=== PATIENT | male | born 1990 | race Caucasian/White ===

== ENCOUNTER 2021-04-25 08:24 | Emergency (ER) | payer BC, MEDICAID, SELFPAY ==
[2021-04-25 08:30] VITALS: BP 151/95; PULSE 68; RESP 15; TEMP 36.7; O2SAT 98; BMI 29.9
--- NOTE | 2021-04-25 08:45 | ED_ITS ---
Documented by User: NII Damon 04/25/21 11:53 HPI - Abdominal Pain General: Chief Complaint: Abdominal Pain Stated Complaint: Abdominal & Back Pain, vomiting Time Seen by Provider: 04/25/21 08:38 History of Present Illness: HPI narrative: Patient is a 30-year-old male comes to the ED with left flank pain and nausea. Symptoms started last night. He rates pain currently an 8 out of 10 in the pain is in the left flank and rad iates down the groin. He has never had this pain before. He is currently nauseous and had multiple episodes of emesis this morning. He has never had pain like this before and has no history of past kidney stones. Associated Symptoms: Reports nausea and vomiting; Denies chills, constipation, diarrhea, dysuria, fever(s), hematochezia and hematuria Review of Systems Const: Denies: fever(s), chills or fatigue Eyes: Denies: change in vision or eye discomfort ENMT: Denies: throat pain, odynophagia, nasal discharge or nasal congestion Card: Denies: chest pain, palpitations, edema, swelling of feet/ankles, dyspnea on exertion or orthopnea Resp: Denies: dyspnea, productive cough or non-productive cough GI: Reports: nausea and vomiting; Denies: abdominal pain, diarrhea, constipation or hematochezia : Reports: flank pain (left flank); Denies: difficulty urinating, dysuria or hematuria Musc: Denies: neck pain, back pain or extremity swelling Skin/Breast: Denies: rash or new lesions Neuro: Denies: headache(s), numbness in extremities or weakness in extremities Physical Exam Const: COMMON NORMALS: patient oriented x3 and alert GENERAL APPEARANCE: cooperative; not comfortable (Patient appears uncomfortable and constantly moving around room and bed) HENMT: COMMON NORMALS: normocephalic HEAD & SCALP: normocephalic MOUTH: Normal oral and palatal mucosa present THROAT: posterior oropharynx normal and uvula midline Eye: COMMON NORMALS: Equal, round and reactive pupils present PUPIL: Yes Equal, round and reactive pupils present Neck/C-Spine: COMMON NORMALS: supple GENERAL: Yes normal visual inspection Resp: COMMON NORMALS: normal respiratory effort, No retractions, No use of accessory muscles and clear to auscultation bilaterally AUSCULTATION: clear to auscultation bilaterally Cardio: COMMON NORMALS: regular rate, regular rhythm, S1 normal heart sound present, S2 normal heart sound present, No gallops present (Cardio), No clicks present (Cardio), No murmurs present (Cardio) and Peripheral pulses 2+ throughout RATE: regular rate RHYTHM: regular rhythm HEART SOUNDS: S1 normal heart sound present and S2 normal heart sound present PERIPHERAL PULSES: Peripheral pulses 2+ throughout GI: COMMON NORMALS: Normal to inspection, nondistended, normoactive bowel so unds present, Soft to palpation, non-tender and no masses PALPATION: Yes Soft to palpation : BLADDER/KIDNEY EXAM: Yes CVA tenderness Back/Pelvis: GENERAL BACK: Yes CVA tenderness CVA tenderness: left Extremity: COMMON NORMALS: normal to inspection Neuro: COMMON NORMALS: patient oriented x3 SENSORIUM/ORIENTATION: Yes alert GAIT: Yes Normal gait present Skin: GENERAL SKIN EXAM: dry skin Course Vital Signs: Vital signs: Vital Signs Temperature 98.0 F 04/25/21 08:30 Pulse Rate 60 04/25/21 09:47 Respiratory Rate 14 04/25/21 12:11 Blood Pressure 139/92 04/25/21 09:47 Pulse Oximetry 98 04/25/21 09:47 MDM - Abdominal Pain MDM Narrative: Medical decision making narrative: Patient is a 30-year-old male comes to the ED with left flank pain. Vitals stable. Patient's urine showed red blood cells and calcium oxalate crystals. White blood cell count 17.7 with the rest of the labs are unremarkable. left CVA tenderness, but the rest of exam was benign. CT of abdomen pelvis showed 2 mm obstructive kidney stone in the left UVJ. Patient was given IV fluids, morphine, Toradol and Zofran and symptoms improved. He was stable for discharge home and pain was controlled. He was sent home with Reglan, tamsulosin, naproxen and hydrocodone. Patient instructed to strain urine to catch stone. I placed order with case management for patient be referred to Dr. Santiago's office. Return ED precautions given. Patient stood agree with plan. Lab Data: Attestation: I reviewed the patient's lab results. Labs: Lab Results 04/25/21 04/25/21 04/25/21 09:06 09:06 11:15 WBC 17.7 10^3/uL H 10 ^3/uL (4.0-10.0) RBC 5.05 10^6/uL 10^6 /uL (4.1-5.3) Hgb 16.7 g/dL H g/dL (11.7-16.6) Hct 46.9 % % (42.0-52.0) MCV 92.9 fl fl (80-94) MCH 33.1 pg pg (28.0-34.0) MCHC 35.6 g/dL g/dL (30.0-36.0) RDW 12.3 % % (12.1-15.1) Plt Count 251 10^3/cmm 10^3 /cmm (130-400) MPV 11.2 fL H fL (7.4-10.4) Neut % (Auto) 77.4 % % Lymph % (Auto) 13.9 % % Garvin % (Auto) 6.7 % % Eos % (Auto) 1.0 % % Baso % (Auto) 0.4 % % Neut # (Auto) 13.69 10^3/uL H 1 0^3/uL (1.8-7.7) Lymph # (Auto) 2.5 10^3/uL 10^3/ uL (0.8-4.8) Garvin # (Auto) 1.2 10^3/uL H 10^ 3/uL (0.2-0.9) Eos # (Auto) 0.2 10^3/uL 10^3/ uL (0.0-0.8) Baso # (Auto) 0.1 10^3/uL 10^3/ uL (0.0-0.1) Nucleated RBC % (a uto) 0 % % Nucleated RBCs # 0.0 /100WBC /100W BC Sodium 139 mmol/L mmol/L (136-145) Potassium 3.7 mmol/L mmol/L (3.5-5.1) Chloride 103 mmol/L mmol/L (98-107) Carbon Dioxide 24 mmol/L mmol/L (22-29) Anion Gap 15.7 (5-19) BUN 11 mg/dL mg/dL (6-20) Creatinine 1.1 mg/dL mg/dL (0.7-1.2) GFR Calculation 79.1 mL/min L mL/ min (90-130) Glucose 116 mg/dL H mg/dL (65-115) Calculated Osmolal ity 288 mOsm/kg mOsm/ kg (285-295) Calcium 9.3 mg/dL mg/dL (8.5-10.5) Total Bilirubin 0.4 mg/dL mg/dL (0.15-1.2) AST 17 U/L U/L (0-40) ALT 17 U/L U/L (0-41) Alkaline Phosphata se 77 IU/L IU/L (40-130) Total Protein 7.2 g/dL g/dL (6.6-8.7) Albumin 4.7 g/dL g/dL (3.5-5.2) Globulin 2.5 g/dL g/dL (1.3-4.6) Lipase 28 U/L U/L (13-60) Urine Color Di (Yellow) Urine Appearance Hazy A (CLEAR) Urine pH 5 (5-7) Ur Specific Gravit y 1.030 (1.005-1.030) Urine Protein 1+ H (Negative) Urine Glucose (UA) Norm (Normal) Urine Ketones 1+ H (Negative) Urine Blood 3+ H (Negative) Urine Nitrate Negative (Negative) Urine Bilirubin 1+ H (Negative) Urine Urobilinogen 1 mg/dL H mg/dL (Negative) Ur Leukocyte Nissa ase Negative (Negative) Urine RBC 40-50 /hpf H /hpf (0-2) Urine WBC None /hpf /hpf (0-5) Ur Squamous Epith Cells 0-4 /hpf H /hpf (0-5) Calcium Oxalate Cr ystal 15-25 /hpf H /hpf Amorphous Sediment Not Reportable Urine Bacteria 1+ /hpf H /hpf (NONE) Urine Mucus 1+ /hpf /hpf Imaging Data ^: CT Abd/Pel: Attestation: I personally reviewed and interpreted this imaging study as follows: Radiologist's impression: [address] [place] [address] CT Scan Report Signed Patient: Javier Bazzi Unit #: [id number] : 1990 Age/Sex: 30 / M ADM Date: 04/25/21 Loc: ER Room/Bed: Attending Dr: Ordering Provider/Ordering MD: Ehsan Duckworth Date of Service: 04/25/21 Procedure(s): CT kidney stone [address]62 Accession Number(s): [id number] Report Number: [id number] WS: [id number] CT ABDOMEN PELVIS TECHNIQUE: Noncontrast CT of the abdomen and pelvis with coronal and sagittal reformatted images. CLINICAL INFORMATION: left flank pain that radiatees into groin COMPARISON: None. DLP: 1507.[address] scans at [facility] use at least one of these dose optimization techniques: automated exposure control; mA and/or kV adjustment per patient size (includes targeted exams where dose is matched to clinical indication); or iterative reconstruction. FINDINGS: Mild left pelvocaliectasis with slight inflammatory stranding about the left proximal ureter. Tiny calculus in the left UVJ measuring 2 mm. Mild left ureterectasis. No hydronephrosis in right kidney. Adrenal glands are normal. Noncontrast liver is normal. Normal noncontrast spleen. Small esophageal hiatal hernia. Noncontrast pancreas appears normal. Normal caliber abdominal aorta. Tiny fat- containing umbilical hernia. No evidence of high-grade small or obstruction. No abdominal or pelvic lymphadenopathy. Mild disc bulging L4-L5 and L5-S1. Normal appendix in the right lower quadrant. IMPRESSION: 1. Tiny 2 mm calculus at the left UVJ with mild obstructive uropathy. Mild left pelvocaliectasis and ureterectasis with slight induration. 2. Normal right kidney. 3. Tiny fat-containing umbilical hernia. 4. No other significant findings. Dictated By: Fredo Sheth MD Signed By: Fredo Sheth MD Signed Date/Time: 04/25/2158 DD/ Discharge Plan Discharge Patient Disposition: Home Clinical Impression: Kidney stone on left side Condition: Stable Prescriptions: New Reglan 10 mg tablet 10 mg PO Q6H PRN (Reason: nausea and vomiting) Qty: 12 RF: 0 tamsulosin 0.4 mg capsule 0.4 mg PO DAILY Qty: 15 RF: 0 Naprosyn 500 mg tablet 500 mg PO BID PRN (Reason: pain) Qty: 20 RF: 0 No Action Tylenol Ex Str Rapid Release 500 mg Tablet 1,000 mg PO Q4H PRN (Reason: Pain) RF: 0 naproxen sodium 220 mg Tablet 440 mg PO Q12H PRN (Reason: Pain) RF: 0 Discharge Orders: Discharge ED (Routine); Ordered 04/25/21 Ordered By: Ehsan Duckworth Discharge Diet: Regular Discharge Activity: Increase activity as tolerated Patient Instructions: Kidney Stones (ED), How to Strain Your Urine (ED), Opioid Safety Activity Restrictions/Additional Instructions: Follow-up with medical provider as directed. Case management should be contacting you in the next several days to set up an appointment with Dr. Santiago the urologist. Strain urine to catch stone and drink lots of fluid to stay hydrated and help pass stone. Take medications as prescribed. You can take ibuprofen or Aleve for any pain or fevers. Return to the ER or your medical provider if condition worsens. Please read and understand discharge instructions. If any questions, please ask. Coding Level of Care Code ED [employer] Exam Comprehensive Documented by User: Paolo Villa MD 04/28/21 16:51 HPI - Abdominal Pain General: Chief Complaint: Abdominal Pain Stated Complaint: Abdominal & Back Pain, vomiting Time Seen by Provider: 04/25/21 08:38 Course Vital Signs: Vital signs: Vital Signs Temperature 98.0 F 04/25/21 08:30 Pulse Rate 60 04/25/21 09:47 Respiratory Rate 14 04/25/21 12:11 Blood Pressure 139/92 04/25/21 09:47 Pulse Oximetry 98 04/25/21 09:47 MDM - Abdominal Pain MDM Narrative: Medical decision making narrative: I discussed this case with NII Damon. I have reviewed documentation and reviewed labs and imaging. No evidence of infected stone, small stone at UVJ likely to pass. Paolo Villa MD Emergency Medicine Lab Data: Labs: Lab Results 04/25/21 04/25/21 04/25/21 09:06 09:06 11:15 WBC 17.7 10^3/uL H 10 ^3/uL (4.0-10.0) RBC 5.05 10^6/uL 10^6 /uL (4.1-5.3) Hgb 16.7 g/dL H g/dL (11.7-16.6) Hct 46.9 % % (42.0-52.0) MCV 92.9 fl fl (80-94) MCH 33.1 pg pg (28.0-34.0) MCHC 35.6 g/dL g/dL (30.0-36.0) RDW 12.3 % % (12.1-15.1) Plt Count 251 10^3/cmm 10^3 /cmm (130-400) MPV 11.2 fL H fL (7.4-10.4) Neut % (Auto) 77.4 % % Lymph % (Auto) 13.9 % % Garvin % (Auto) 6.7 % % Eos % (Auto) 1.0 % % Baso % (Auto) 0.4 % % Neut # (Auto) 13.69 10^3/uL H 1 0^3/uL (1.8-7.7) Lymph # (Auto) 2.5 10^3/uL 10^3/ uL (0.8-4.8) Garvin # (Auto) 1.2 10^3/uL H 10^ 3/uL (0.2-0.9) Eos # (Auto) 0.2 10^3/uL 10^3/ uL (0.0-0.8) Baso # (Auto) 0.1 10^3/uL 10^3/ uL (0.0-0.1) Nucleated RBC % (a uto) 0 % % Nucleated RBCs # 0.0 /100WBC /100W BC Sodium 139 mmol/L mmol/L (136-145) Potassium 3.7 mmol/L mmol/L (3.5-5.1) Chloride 103 mmol/L mmol/L (98-107) Carbon Dioxide 24 mmol/L mmol/L (22-29) Anion Gap 15.7 (5-19) BUN 11 mg/dL mg/dL (6-20) Creatinine 1.1 mg/dL mg/dL (0.7-1.2) GFR Calculation 79.1 mL/min L mL/ min (90-130) Glucose 116 mg/dL H mg/dL (65-115) Calculated Osmolal ity 288 mOsm/kg mOsm/ kg (285-295) Calcium 9.3 mg/dL mg/dL (8.5-10.5) Total Bilirubin 0.4 mg/dL mg/dL (0.15-1.2) AST 17 U/L U/L (0-40) ALT 17 U/L U/L (0-41) Alkaline Phosphata se 77 IU/L IU/L (40-130) Total Protein 7.2 g/dL g/dL (6.6-8.7) Albumin 4.7 g/dL g/dL (3.5-5.2) Globulin 2.5 g/dL g/dL (1.3-4.6) Lipase 28 U/L U/L (13-60) Urine Color Di (Yellow) Urine Appearance Hazy A (CLEAR) Urine pH 5 (5-7) Ur Specific Gravit y 1.030 (1.005-1.030) Urine Protein 1+ H (Negative) Urine Glucose (UA) Norm (Normal) Urine Ketones 1+ H (Negative) Urine Blood 3+ H (Negative) Urine Nitrate Negative (Negative) Urine Bilirubin 1+ H (Negative) Urine Urobilinogen 1 mg/dL H mg/dL (Negative) Ur Leukocyte Nissa ase Negative (Negative) Urine RBC 40-50 /hpf H /hpf (0-2) Urine WBC None /hpf /hpf (0-5) Ur Squamous Epith Cells 0-4 /hpf H /hpf (0-5) Calcium Oxalate Cr ystal 15-25 /hpf H /hpf Amorphous Sediment Not Reportable Urine Bacteria 1+ /hpf H /hpf (NONE) Urine Mucus 1+ /hpf /hpf Discharge Plan Discharge Patient Disposition: Home Clinical Impression: Kidney stone on left side Condition: Stable Prescriptions: New Reglan 10 mg tablet 10 mg PO Q6H PRN (Reason: nausea and vomiting) Qty: 12 RF: 0 tamsulosin 0.4 mg capsule 0.4 mg PO DAILY Qty: 15 RF: 0 Naprosyn 500 mg tablet 500 mg PO BID PRN (Reason: pain) Qty: 20 RF: 0 No Action Tylenol Ex Str Rapid Release 500 mg Tablet 1,000 mg PO Q4H PRN (Reason: Pain) RF: 0 naproxen sodium 220 mg Tablet 440 mg PO Q12H PRN (Reason: Pain) RF: 0 Discharge Orders: Discharge ED (Routine); Ordered 04/25/21 Ordered By: Ehsan Duckworth Discharge Diet: Regular Discharge Activity: Increase activity as tolerated Patient Instructions: Kidney Stones (ED), How to Strain Your Urine (ED), Opioid Safety Activity Restrictions/Additional Instructions: Follow-up with medical provider as directed. Case management should be contacting you in the next several days to set up an appointment with Dr. Santiago the urologist. Strain urine to catch stone and drink lots of fluid to stay hydrated and help pass stone. Take medications as prescribed. You can take ibuprofen or Aleve for any pain or fevers. Return to the ER or your medical provider if condition worsens. Please read and understand discharge instructions. If any questions, please ask. Coding Level of Care Code ED [employer] for [employer] Exam Comprehensive
--- NOTE | 2021-04-25 08:48 | CT_ITS ---
WS: [id number] CT ABDOMEN PELVIS TECHNIQUE: Noncontrast CT of the abdomen and pelvis with coronal and sagittal reformatted images. CLINICAL INFORMATION: left flank pain that radiatees into groin COMPARISON: None. DLP: 1507.[address] scans at [facility] use at least one of these dose optimization techniques: automated e xposure control; mA and/or kV adjustment per patient size (includes targeted exams where dose is matc hed to clinical indication); or iterative reconstruction. FINDINGS: Mild left pelvocaliectasis with slight inflammatory stranding about the left proximal ureter. Tiny ca lculus in the left UVJ measuring 2 mm. Mild left ureterectasis. No hydronephrosis in right kidney. Ad renal glands are normal. Noncontrast liver is normal. Normal noncontrast spleen. Small esophageal hia ami hernia. Noncontrast pancreas appears normal. Normal caliber abdominal aorta. Tiny fat-containing umbilical hernia. No evidence of high-grade small or obstruction. No abdominal or pelvic lymphadenopa thy. Mild disc bulging L4-L5 and L5-S1. Normal appendix in the right lower quadrant. IMPRESSION: 1. Tiny 2 mm calculus at the left UVJ with mild obstructive uropathy. Mild left pelvocaliectasis and ureterectasis with slight induration. 2. Normal right kidney. 3. Tiny fat-containing umbilical hernia. 4. No other significant findings.
[2021-04-25] MEDS: sodium chloride 0.9% 1,000 ML 999 ML IV (09:14)
[2021-04-25] MEDS: ondansetron 2 mg/ML SDV 2 mL 4 MG IVP (09:16)
[2021-04-25 09:18] VITALS: RESP 18
[2021-04-25] MEDS: morphine 4 mg/mL SDV 1 mL IVP ×2 (09:18→10:06)
[2021-04-25 09:29] LABS: Basophils # 0.1 10^3/uL (0.0-0.1); Basophils % 0.4 %; Eosinophils # 0.2 10^3/uL (0.0-0.8); Hematocrit 46.9 % (42.0-52.0); Hemoglobin 16.7 g/dL (11.7-16.6); Lymphocytes # 2.5 10^3/uL (0.8-4.8); Lymphocytes % 13.9 %; Mean Corpuscular HGB Conc 35.6 g/dL (30.0-36.0); Mean Corpuscular Hemoglobin 33.1 pg (28.0-34.0); Mean Corpuscular Volume 92.9 fl (80-94); Mean Platelet Volume 11.2 fL (7.4-10.4); Monocytes # 1.2 10^3/uL (0.2-0.9); Monocytes % 6.7 %; Neutrophils # 13.69 10^3/uL (1.8-7.7); Neutrophils % 77.4 %; Nucleated Red Blood Cells % 0 %; Platelet Count 251 10^3/cmm (130-400); Red Blood Count 5.05 10^6/uL (4.1-5.3); Red Cell Distribution Width 12.3 % (12.1-15.1); White Blood Count 17.7 10^3/uL (4.0-10.0)
[2021-04-25 09:46] LABS: Alanine Aminotransferase 17 U/L (0-41); Albumin Level 4.7 g/dL (3.5-5.2); Alkaline Phosphatase 77 IU/L (40-130); Anion Gap 15.7 (5-19); Aspartate Amino Transferase 17 U/L (0-40); Blood Urea Nitrogen 11 mg/dL (6-20); Calcium 9.3 mg/dL (8.5-10.5); Carbon Dioxide 24 mmol/L (22-29); Chloride 103 mmol/L (98-107); Globulin 2.5 g/dL (1.3-4.6); Glomerular Filtration Rate 79.1 mL/min (90-130); Glucose 116 mg/dL (65-115); Lipase 28 U/L (13-60); Osmolality Calculated 288 mOsm/kg (285-295); Potassium 3.7 mmol/L (3.5-5.1); Sodium 139 mmol/L (136-145); Total Bilirubin 0.4 mg/dL (0.15-1.2); Total Protein 7.2 g/dL (6.6-8.7)
[2021-04-25 09:47] VITALS: BP 139/92; PULSE 60; RESP 14; O2SAT 98
[2021-04-25 10:06] VITALS: RESP 14
[2021-04-25] MEDS: ketorolac 30 mg/mL INJ IVP (10:12)
[2021-04-25] MEDS: tamsulosin 0.4 mg Capsule PO (10:30)
[2021-04-25 11:42] LABS: Add Urine Microscopic? YES; Bilirubin Urine 1+ (Negative); Blood Urine 3+ (Negative); Glucose Urine UA Norm (Normal); Ketones Urine 1+ (Negative); Leukocyte Esterase Urine Negative (Negative); Nitrate Urine Negative (Negative); Protein Urine 1+ (Negative); Urine Appearance Hazy (CLEAR); Urine Color Amber (Yellow); Urobilinogen Urine 1 mg/dL (Negative); pH Urine 5 (5-7)
[2021-04-25 11:44] LABS: Add Urine Culture? Yes; Bacteria Urine 1+ /hpf; Calcium Oxalate Crystals Urine 15-25 /hpf; Mucus Urine 1+ /hpf; RBC Urine 40-50 /hpf (0-2); Squamous Epithelial Cell Urine 0-4 /hpf (0-5)
[2021-04-25 12:11] VITALS: RESP 14
--- NOTE | 2021-04-26 11:38 | DCPLANNER ---
bus company manager had message to schedule a follow up appointment for patient with Dr. Santiago. bus company manager called the office of Dr. Santiago, spoke with Ruel, gave clinic patients information. bus company manager was told that patients information would be printed and reviewed. Clinic will call patient with appointment information.
--- NOTE | 2021-05-16 09:58 | DCPLANNER ---
Patient had a follow up appointment scheduled for 04.29.[address] Santiago - patient did attend appointment.
== END 2021-04-25 12:11 | disposition home or self-care (01) ==
PROVIDERS: Emergency Provider Physician Assistant
DX: N20.0 Calculus of kidney (principal)
CPT/HCPCS: 36415; 74176; 80053; 81001; 83690; 85025; 87040; 87086; 96361; 96374; 96375; 96376; 99284; J1885; J2270; J2405; J7030

== ENCOUNTER 2021-04-29 07:18 | Outpatient (CLI) | payer BC, MEDICAID, SELFPAY ==
--- NOTE | 2021-04-29 07:24 | XR_ITS ---
WS: [id number] Exam: XR [id number] Date/Time of Exam: 04/29/2021 7:30 AM Reason For Exam: STONES No bowel obstruction or free air. A 2 mm calcification is seen along the right paraspinal region near the right transverse process of L4 and could represent a urinary tract stone. No sign of organ enlar gement. Small right pelvic calcifications are noted which are nonspecific and may be phleboliths. Reg ional bony elements appear normal. XR/XR KUB [id number] IMPRESSION: 1. 2 mm right paraspinal calcification at the level of L4 which may represent a urinary tract stone. There are also 2 small right pelvic calcifications noted which are nonspecific in appearance. No acute finding.
== END 2021-04-29 07:19 | disposition home or self-care (01) ==
PROVIDERS: Visit Provider Urology
DX: N20.0 Calculus of kidney (principal)
CPT/HCPCS: 74018; 81003